=== PATIENT | male | born 1990 | race Two or more races ===

== ENCOUNTER 2018-11-04 01:13 | Emergency (ER) | payer SELFPAY ==
[~2018-11-04] VITALS: Ht 180.3 cm; Wt 99.8 kg
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
[2018-11-04] MEDS ORDERED: Tetanus/Diptheria/Pertussis IM ONE (01:30)
[2018-11-04 01:32] VITALS: BP 108/66
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
[2018-11-04] MEDS ORDERED: Bacitracin Oint UD TOPIC ONE ×2 (03:22→04:07)
[2018-11-04] MEDS ORDERED: Ciprofloxacin 500mg tab ORAL ONE (03:45)
--- NOTE | 2018-11-04 04:08 | NUR ---
ED Nurse Note: Bacitracin PENITENTIARY was overrided, by ER MD order.
--- NOTE | 2018-11-04 04:10 | NUR ---
ED Nurse Note: splint on left ring finger was applyed.
[2018-11-04] MEDS ORDERED: BACTRIM DS TAB1 EAC1 ORAL (04:24)
[2018-11-04] MEDS ORDERED: IBUPROFEN600 MG ORAL (04:24)
[2018-11-04] MEDS ORDERED: NORCO 5-325 TA1 EACH ORAL (04:24)
[2018-11-04 04:38] VITALS: BP 108/66
--- NOTE | 2018-11-04 04:38 | NUR ---
ED Nurse Note: Pt cleared by health care Provider for discharge. DC instructions/prescription was given and explained to pt and verbalized understanding of teachings. All medical deviecs such as ID band removed. Pt is AAO x4, ambulatory and left with all personal belongings.
--- NOTE | 2018-11-04 10:48 | Diagnostic Imaging Report ---
Indication: Headache and trauma Technique: Contiguous 5 mm thick transaxial imaging of the head obtained in a Siemens Sensation [address] scanner. Soft tissue and bone windows generated. Automatic Exposure Control was utilized. Total Dose length Product (DLP): 1478.[address] Dose Index Volume (CTDIvol): 70.38 mGy Comparison: none Findings: The size and configuration of the cortical sulci, basal cisterns, and ventricles are within normal limits for age. There is no mass effect, midline shift, or edema identified. There is no evidence of acute hemorrhage or abnormal intra-axial or extra-axial fluid collections. The bones and soft tissues are unremarkable. Impression: No mass effect, edema or acute bleed. [facility] has communicated the preliminary results to the Emergency Department. Their findings are largely concordant with this report. The CT scanner at [facility] is accredited by the [employer] and the scans are performed using dose optimization techniques as appropriate to a performed exam including Automatic Exposure control.
--- NOTE | 2018-11-04 11:53 | Diagnostic Imaging Report ---
Indication: left hand pain. Comparison: Prereduction film earlier Findings: 3 views of the left hand were obtained. Slight dorsal subluxation of the fourth PIP joint noted improved compared to the prereduction films. Fractures again noted unchanged. IMPRESSION: Intra-articular fracture dislocation fourth PIP joint. Slight improvement in alignment compared to the prereduction film. Comminuted distal phalangeal tuft fracture
--- NOTE | 2018-11-04 11:54 | Diagnostic Imaging Report ---
Indication: left hand pain. Comparison: None Findings: 3 views of the left hand were obtained. There is a comminuted fracture involving the distal aspect of the fourth distal phalange involving the phalangeal tuft. There is also fracture that is intra-articular involving the base of the fourth middle phalange which is also dislocated laterally and dorsally. IMPRESSION: Acute fracture dislocation fourth PIP joint and fourth distal phalangeal fracture.
== END 2018-11-04 04:40 | disposition home or self-care (01) ==
LOC: EDBD 01:13 → EMR 01:46
DX: S01.81XA Laceration without foreign body of other part of head, initial encounter (principal); S60.142A Contusion of left ring finger with damage to nail, initial encounter; S62.635A Displaced fracture of distal phalanx of left ring finger, initial encounter for closed fracture; Y04.2XXA Assault by strike against or bumped into by another person, initial encounter; Z23 Encounter for immunization
CPT/HCPCS: 29130; 70450; 90471; 90715; 99284